=== PATIENT | female | born 1980 | race African-American/Black ===

== ENCOUNTER → 2016-10-08 | Outpatient (CLI) | payer BC ==
--- NOTE | 2016-10-09 03:31 | REP ---
Clinical: Enlarged thyroid; evaluate for mass. Technique: Real time blum scale ultrasound examination using linear high frequency transducer. Findings: The thyroid gland is heterogeneous and diffusely enlarged without discrete nodule, cyst or mass lesion. Right lobe measures 6.4 x 3.1 x 2.0 cm. Left lobe measures 6.3 x 3.0 x 2.4 cm. Isthmus measures 10.5 mm in width. Impression: Enlarged heterogeneous gland without discrete abnormality. Signed by Arie Martínez MD 10/09/2016 03:23 A
== END ==
LOC: M RAD 12:23
PROVIDERS: ATTEND Family Medicine
DX: E04.9 Nontoxic goiter, unspecified (principal)

== ENCOUNTER → 2016-10-21 | Outpatient (REF) | payer BC ==
[2016-10-21 20:54] LABS: FREE T4 > 8.00 NG/DL (0.76-1.46)
== END ==
LOC: M LABDRAW1 16:26
PROVIDERS: ATTEND Internal Medicine Endocrinology, Diabetes & Metabolism
DX: E05.00 Thyrotoxicosis with diffuse goiter without thyrotoxic crisis or storm (principal)

== ENCOUNTER → 2016-10-29 | Outpatient (CLI) | payer BC ==
--- NOTE | 2016-10-30 13:42 | REP ---
Radionuclide thyroid scan and uptake: History: Hyperthyroidism. Thyrotoxicosis with goiter. Technique: 324.0 microcuries of I-123 sodium iodide is ingested and 24 hour uptake value is acquired along with functional images. Findings: 24 uptake value is markedly elevated in this patient at 86.8% (25-35% ). Functional images demonstrate enlarged homogeneously functioning thyroid lobes bilaterally. The right lobe measures 7.6 and the left 6.8 cm in craniocaudal span. No warm or cold lesion is seen. Impression: Homogeneous function, markedly increased uptake compatible with Graves disease. Uptake value is 86.8%. Signed by Winston Orta MD 10/30/2016 04:32 P
== END ==
LOC: M RAD 12:12
PROVIDERS: ATTEND Internal Medicine Endocrinology, Diabetes & Metabolism
DX: E05.00 Thyrotoxicosis with diffuse goiter without thyrotoxic crisis or storm (principal)

== ENCOUNTER → 2016-12-08 | Outpatient (REF) | payer BC ==
[2016-12-08 18:52] LABS: FREE T4 1.42 NG/DL (0.76-1.46)
== END ==
LOC: M LABDRAW1 15:38
PROVIDERS: ATTEND Internal Medicine Endocrinology, Diabetes & Metabolism
DX: E05.00 Thyrotoxicosis with diffuse goiter without thyrotoxic crisis or storm (principal)

== ENCOUNTER → 2016-12-30 | Outpatient (REF) | payer BC | LOC: M LAB REF 17:07 | PROVIDERS: ATTEND Internal Medicine Endocrinology, Diabetes & Metabolism | DX: E05.00 Thyrotoxicosis with diffuse goiter without thyrotoxic crisis or storm (principal) ==

== ENCOUNTER → 2017-01-01 | Outpatient (CLI) | payer BC | LOC: M RAD 08:51 | PROVIDERS: ATTEND Internal Medicine Endocrinology, Diabetes & Metabolism | DX: E05.00 Thyrotoxicosis with diffuse goiter without thyrotoxic crisis or storm (principal) | CPT/HCPCS: 79005; A9517 ==

== ENCOUNTER → 2017-02-25 | Outpatient (CLI) | payer BC ==
[2017-02-25 20:28] LABS: FREE T4 0.63 NG/DL (0.76-1.46)
== END ==
LOC: M WUC 17:01
PROVIDERS: ATTEND Internal Medicine Endocrinology, Diabetes & Metabolism
DX: E05.00 Thyrotoxicosis with diffuse goiter without thyrotoxic crisis or storm (principal)

== ENCOUNTER → 2017-03-09 | Outpatient (CLI) | payer BC | LOC: M WUC 14:43 | PROVIDERS: ATTEND Internal Medicine Endocrinology, Diabetes & Metabolism | DX: E89.0 Postprocedural hypothyroidism (principal) ==

== ENCOUNTER → 2017-04-13 | Outpatient (REF) | payer BC ==
[2017-04-13 20:23] LABS: FREE T4 1.51 NG/DL (0.76-1.46)
== END ==
LOC: M LABDRAW1 17:22
PROVIDERS: ATTEND Internal Medicine Endocrinology, Diabetes & Metabolism
DX: E89.0 Postprocedural hypothyroidism (principal); E05.00 Thyrotoxicosis with diffuse goiter without thyrotoxic crisis or storm